=== PATIENT | female | born 1995 | race Caucasian/White ===

== ENCOUNTER 2017-12-26 16:28 | Emergency (ER) | payer OTHER ==
[~2017-12-26] VITALS: Ht 152.4 cm; Wt 84.2 kg
[2017-12-26 16:37] VITALS: TEMP 36.7; Ht 152.4 cm; Wt 84.2 kg
[2017-12-26] MEDS ORDERED: KETOROLAC TROMETHAMINE 30 MG/ML VIAL IV STA (17:05)
--- NOTE | 2017-12-26 17:11 | EMERGENCY ROOM VISIT NOTE ---
History First contact with patient: 16:50 Chief Complaint: OTHER COMPLAINT Stated Complaint: UTERUS PAIN-CALLED AHEAD Nursing Triage Summary: IUD displaced History of Present Illness The patient is a 22 year old female who presents to the Emergency Room with complaints of lower abdominal cramping that has been intermittent over the last 2 weeks. The patient reports having an IUD placed 1 year ago. The patient saw [facility] earlier this week. She had an ultrasound performed. She was told to have her IUD removed as it was misplaced. The patient could not get an appointment with [facility] as it is a Thursday, which is why she came to the emergency department. She denies any fever or chills. No changes in bowel movements. No nausea or vomiting. She denies any urinary symptoms. She denies any vaginal discharge. Review of Systems 10 system review performed and negative unless noted in HPI or below Past Medical/Surgical History Type 1 diabetes Depression Social History Smoking Status: Never Smoker Occupation Status: [employer] student Current/Historical Medications Scheduled Insulin Glargine (Lantus Solostar), 0 SC BID Ketorolac Tromethamine (Toradol), 10 MG PO TID Miscellaneous Medications Fluoxetine (Prozac), 10 MG PO Physical Exam Vital Signs Date Time Temp Pulse Resp B/P (MAP) Pulse Ox O2 Delivery O2 Flow Rate FiO2 12/26/17 19:23 78 16 115/74 97 12/26/17 18:48 78 16 115/74 97 Room Air 12/26/17 16:37 36.7 91 18 123/82 98 Room Air Physical Exam VITALS: Vitals are noted on the nurse's note and reviewed by myself. Vital signs stable. GENERAL: 22-year-old female, in no acute distress, nondiaphoretic, well- developed well-nourished. SKIN: The skin was without rashes, erythema, edema, or bruising. HEAD: Normocephalic atraumatic. MOUTH: Mucous membranes moist. HEART: Regular rate and rhythm without murmurs gallops or rubs. LUNGS: Clear to auscultation bilaterally without wheezes, rales or rhonchi. No accessory muscle use. ABDOMEN: Positive bowel sounds x 4.Soft, mild tenderness in the suprapubic region without organomegaly. No guarding or rebound tenderness. MUSCULOSKELETAL: No muscle atrophy, erythema, or edema noted. Strength 5/5 throughout. NEURO: Patient was alert and oriented to person place and time. Normal sensation to touch. No focal neurological deficits. Medical Decision & Procedures ER Provider Diagnostic Interpretation: Transvaginal ultrasound IMPRESSION: No significant abnormality identified within the pelvis. Intrauterine device within the central canal. It is positioned appropriately. The above report was generated using voice recognition software. It may contain grammatical, syntax or spelling errors. Electronically signed by: Destin Mcfadden M.D. 12/26/2017 6:36 PM Dictated Date/Time: 12/26/2017 6:34 PM The status of this report is Signed. Draft = Not yet reviewed or approved by Radiologist. Signed = Reviewed and approved by Radiologist. Laboratory Results 12/26/17 17:35 Red Blood Count 4.63, Mean Corpuscular Volume 86.0, Mean Corpuscular Hemoglobin 29.4, Mean Corpuscular Hemoglobin Concent 34.2, Mean Platelet Volume 10.0, Neutrophils (%) (Auto) 66.0, Lymphocytes (%) (Auto) 25.7, Monocytes (%) (Auto) 6.7, Eosinophils (%) (Auto) 1.1, Basophils (%) (Auto) 0.3, Neutrophils # (Auto) 4.24, Lymphocytes # (Auto) 1.65, Monocytes # (Auto) 0.43, Eosinophils # (Auto) 0.07, Basophils # (Auto) 0.02 12/26/17 17:35 Test 12/26/17 17:30 12/26/17 17:35 12/26/17 19:17 Urine Color YELLOW Urine Appearance CLEAR (CLEAR) Urine pH 5.5 (4.5-7.5) Urine Specific Grants 1.030 (1.000-1.030) Urine Protein NEG (NEG) Urine Glucose (UA) 3+ (NEG) Urine Ketones NEG (NEG) Urine Occult Blood NEG (NEG) Urine Nitrite NEG (NEG) Urine Bilirubin NEG (NEG) Urine Urobilinogen NEG (NEG) Urine Leukocyte Esterase NEG (NEG) White Blood Count 6.42 K/uL (4.8-10.8) Red Blood Count 4.63 M/uL (4.2-5.4) Hemoglobin 13.6 g/dL (12.0-16.0) Hematocrit 39.8 % (37-47) Mean Corpuscular Volume 86.0 fL (80-100) Mean Corpuscular Hemoglobin 29.4 pg (25-34) Mean Corpuscular Hemoglobin Concent 34.2 g/dl (32-36) Platelet Count 293 K/uL (130-400) Mean Platelet Volume 10.0 fL (7.4-10.4) Neutrophils (%) (Auto) 66.0 % Lymphocytes (%) (Auto) 25.7 % Monocytes (%) (Auto) 6.7 % Eosinophils (%) (Auto) 1.1 % Basophils (%) (Auto) 0.3 % Neutrophils # (Auto) 4.24 K/uL (1.4-6.5) Lymphocytes # (Auto) 1.65 K/uL (1.2-3.4) Monocytes # (Auto) 0.43 K/uL (0.11-0.59) Eosinophils # (Auto) 0.07 K/uL (0-0.5) Basophils # (Auto) 0.02 K/uL (0-0.2) RDW Standard Deviation 36.6 fL (36.4-46.3) RDW Coefficient of Variation 11.8 % (11.5-14.5) Immature Granulocyte % (Auto) 0.2 % Immature Granulocyte # (Auto) 0.01 K/uL (0.00-0.02) Anion Gap 7.0 mmol/L (3-11) Est Creatinine Clear Calc Drug Dose 94.9 ml/min Estimated GFR () 105.3 Estimated GFR (Non- 90.8 BUN/Creatinine Ratio 8.0 (10-20) Calcium Level 8.8 mg/dl (8.5-10.1) Beta-Hydroxybutyric Acid 1.12 mg/dL (0.2-2.81) Human Chorionic Gonadotropin, Qual NEG (NEG) Chemistry Specimen Hemolysis Bedside Glucose 281 mg/dl (70-90) Medications Administered Medications (Trade) Dose Ordered Sig/Tima Route Start Time Stop Time Status Last Admin Dose Admin Ketorolac Tromethamine (Toradol Inj) 30 mg NOW STAT IV 12/26/17 17:05 12/26/17 17:10 DC 12/26/17 17:43 30 MG Sodium Chloride 1,000 ml @ 999 mls/hr Q1H1M ONCE IV 3/17/18 18:30 12/26/17 19:30 DC 12/26/17 18:47 999 MLS/HR ED Course Patient was seen and examined Vital signs including blood pressure were reviewed medications list was verified with patient Labs were obtained, and a saline lock was established The patient was medicated with Toradol 30 mg IV Imaging was performed The case was discussed with my supervising physician who is in agreement with my plan The patient was reassessed and resting comfortably. Her pain was improved. We thoroughly reviewed her workup. She voiced understanding, and was comfortable being discharged home. I reviewed discharge instructions the patient. They voiced understanding and had no further questions. Medical Decision Differential diagnosis: Uterine cramping, fibroids, uterine rupture, endometritis, PID, other STD, UTI, ovarian cyst, This patient is a 22-year-old female that presents to the emergency department with lower abdominal cramping over the last several weeks. She was told that her IUD was malaligned and that it needed to be removed. On exam, her abdomen is benign. She is nontoxic in appearance., Afebrile, no leukocytosis. Her urinalysis is clean. An ultrasound was performed. The IUD is in good position. No abnormalities were noted. This was thoroughly discussed with the patient. She was comfortable with the IUD staying in place with close gynecologic follow-up, which I think is reasonable. The patient was urged to call the dispatcher [facility] and [facility] on Thursday for a follow-up appointment. She was also cautioned to return to the emergency department with worsening symptoms including fever, vomiting or more localized pain This chart was completed in part utilizing [employer] Speech Voice Recognition software. Attempts were made to minimize the grammatical errors, random word insertions, pronoun errors and incomplete sentences. Any formal questions or concerns about the content, text or information contained within the body of this dictation should be directly addressed to the provider for clarification. Medication Reconcilliation Current Medication List: was personally reviewed by me Blood Pressure Screening Patient's blood pressure: Normal blood pressure Impression Primary Impression: Lower abdominal pain Departure Information Dispostion Home / Self-Care Condition GOOD Prescriptions Ketorolac Tromethamine (TORADOL) 10 Mg Tab 10 MG PO TID for Pain, #12 TAB Prov: Zoe Dee PA-C 12/26/17 Referrals No Doctor, Assigned (PCP) Hardyk,Zoe K.,M.D. Patient Instructions My [facility] Additional Instructions You had been evaluated in the emergency department for lower abdominal pain and bloating. Blood work reveals an elevated glucose at 388. An ultrasound was performed. The IUD appears to be in the correct position. Please recheck your blood sugar every 4 hours this evening Please call the gynecology office on Thursday for a follow-up appointment. Please take Toradol 1 tab every 8 hours as needed for pain Please do not hesitate to return to the emergency department with any new, worsening or concerning symptoms; especially, increase or localizing pain, fever or persistent vomiting
[2017-12-26 17:48] LABS: BASO % 0.3 %; BASO ABS # 0.02 K/uL (0-0.2); EOS % 1.1 %; EOS ABS # 0.07 K/uL (0-0.5); HEMATOCRIT 39.8 % (37-47); HEMOGLOBIN 13.6 g/dL (12.0-16.0); IG# 0.01 K/uL (0.00-0.02); LYMPH % 25.7 %; LYMPH ABS # 1.65 K/uL (1.2-3.4); MEAN CORPUSCULAR HEMOGLOBIN 29.4 pg (25-34); MEAN CORPUSCULAR HGB CONC 34.2 g/dl (32-36); MONO % 6.7 %; MONO ABS # 0.43 K/uL (0.11-0.59); NEUT ABS # 4.24 K/uL (1.4-6.5); PLATELET COUNT 293 K/uL (130-400); RED CELL DISTRIBUTION WIDTH CV 11.8 % (11.5-14.5); RED CELL DISTRIBUTION WIDTH SD 36.6 fL (36.4-46.3); WHITE BLOOD COUNT 6.42 K/uL (4.8-10.8)
[2017-12-26 18:10] LABS: CALCIUM 8.8 mg/dl (8.5-10.1); CREATININE 0.91 mg/dl (0.60-1.20)
[2017-12-26] MEDS ORDERED: FLUO10CA48 PO (18:11)
[2017-12-26] MEDS ORDERED: INSDGIPEN SC (18:11)
[2017-12-26] MEDS ORDERED: SODIUM CHLORIDE 0.9% 1000ML 1,000 ML IV ONE (18:30)
--- NOTE | 2017-12-26 18:37 | DIAGNOSTIC IMAGING REPORT ---
TRANSVAG-FEMALE PELVIS HISTORY: Q.D. position ? IUD misplacement COMPARISON: None. FINDINGS: Uterus: Maximum dimension 5.9 cm per IUD within the central canal placed appropriately. Endometrial stripe: 3 mm Right ovary: 3.3 cm with normal vascular flow. Several small subcentimeters follicular cyst. Left ovary: 3.2 cm maximum dimension with normal vascular flow. Several small follicular cysts. Miscellaneous:No pelvic free fluid. IMPRESSION: No significant abnormality identified within the pelvis. Intrauterine device within the central canal. It is positioned appropriately. The above report was generated using voice recognition software. It may contain grammatical, syntax or spelling errors. Electronically signed by: Destin Mcfadden M.D. 12/26/2017 6:36 PM Dictated Date/Time: 12/26/2017 6:34 PM
[2017-12-26] MEDS ORDERED: KETO10TA PO (19:03)
[2017-12-26 19:23] VITALS: BP 115/74; PULSE 78; O2SAT 97
== END 2017-12-26 19:23 | disposition home or self-care (01) ==
LOC: C.EDB 16:30 → C.EDA 19:23
DX: R10.30 Lower abdominal pain, unspecified (principal); E11.9 Type 2 diabetes mellitus without complications; F32.9 Major depressive disorder, single episode, unspecified